=== PATIENT | female | born 1955 | race Caucasian/White ===

== ENCOUNTER → 2023-03-18 11:01 | Outpatient (REF) | payer OTHER, SELFPAY | LOC: PAVMRI 11:01 | PROVIDERS: ATTENDING PHYSICIAN Physician Assistant | DX: H93.A9 Pulsatile tinnitus, unspecified ear (principal) | CPT/HCPCS: 70553; A9575 ==

== ENCOUNTER → 2023-05-20 09:17 | Outpatient (REF) | payer OTHER, SELFPAY | LOC: MRI 3T 09:17 | PROVIDERS: ATTENDING PHYSICIAN Internal Medicine Gastroenterology; FAMILY PHYSICIAN Family Medicine | DX: K86.2 Cyst of pancreas (principal) | CPT/HCPCS: 72141; 74183; A9575 ==

== ENCOUNTER → 2023-11-28 07:40 | Outpatient (REF) | payer OTHER, SELFPAY | LOC: WDC 07:40 | PROVIDERS: ATTENDING PHYSICIAN Obstetrics & Gynecology; FAMILY PHYSICIAN Physician Assistant | DX: Z12.31 Encounter for screening mammogram for malignant neoplasm of breast (principal) | CPT/HCPCS: 77063; 77067 ==

== ENCOUNTER → 2024-01-28 11:40 | Outpatient (REF) | payer OTHER, SELFPAY ==
[2024-01-28 12:32] LABS: % Basophils 0.4 % (0-2); % Eosinophils 0.4 % (0-6); % Immature Granulocytes 0.4 % (0-0.5); % Lymphocytes 22.2 % (20.5-51.1); % Monocytes 13.4 % (1.7-9.3); % Neutrophils 63.2 % (42.2-75.2); Absolute Monocytes 0.6 10^3/uL (0.1-0.6); Absolute Neutrophils 2.9 10^3/uL (1.4-6.5); Hematocrit 29.3 % (37.0-47.0); Mean Corp Hgb Conc. 34.1 g/dL (33.0-37.0); Mean Corpuscular Hgb 35.2 pg (27.0-31.0); Mean Corpuscular Volume 103.2 fL (81.0-99.0); Mean Platelet Volume 9.6 fL (7.4-10.4); Nucleated Red Blood Cells % 0 %; Platelet Count 248 10^3/uL (130-400); Red Blood Cell Count 2.84 10^6/uL (4.20-5.40); Red Cell Dist. Width 13.4 % (11.5-14.5); White Blood Cell Count 4.6 10^3/uL (4.8-10.8)
[2024-01-28 12:46] LABS: Blood Urea Nitrogen 26 mg/dl (7-17); Calcium 8.8 mg/dl (8.4-10.2); Carbon Dioxide 30 mmol/L (22-30); Chloride 104 mmol/L (98-107); Glucose 116 mg/dl (70-99); Potassium 3.6 mmol/L (3.5-5.1); Sodium 140 mmol/L (135-145); eGFR > 60.00
== END ==
LOC: REG 11:40
PROVIDERS: ATTENDING PHYSICIAN Physician Assistant; FAMILY PHYSICIAN Physician Assistant
DX: D72.819 Decreased white blood cell count, unspecified (principal); D64.9 Anemia, unspecified; R19.7 Diarrhea, unspecified
CPT/HCPCS: 36415; 80048; 85025

== ENCOUNTER → 2024-02-10 12:39 | Outpatient (REF) | payer OTHER, SELFPAY | LOC: RAD 12:39 | PROVIDERS: ATTENDING PHYSICIAN Nurse Practitioner Family; FAMILY PHYSICIAN Physician Assistant | DX: R07.81 Pleurodynia (principal); M25.511 Pain in right shoulder | CPT/HCPCS: 71046; 71110; 73030 ==

== ENCOUNTER → 2024-11-28 07:43 | Outpatient (REF) | payer OTHER, SELFPAY | LOC: WDC 07:43 | PROVIDERS: ATTENDING PHYSICIAN Obstetrics & Gynecology; FAMILY PHYSICIAN Family Medicine | DX: Z12.31 Encounter for screening mammogram for malignant neoplasm of breast (principal) | CPT/HCPCS: 77063; 77067 ==

== ENCOUNTER → 2024-12-19 11:14 | Outpatient (REF) | payer OTHER, SELFPAY | LOC: RAD 11:14 | PROVIDERS: ATTENDING PHYSICIAN Obstetrics & Gynecology; FAMILY PHYSICIAN Family Medicine | DX: Z78.0 Asymptomatic menopausal state (principal) | CPT/HCPCS: 77080 ==